=== PATIENT | male | born 1980 | race Hispanic/Latino ===

== ENCOUNTER 2017-12-15 17:07 | Inpatient (IN) | payer SELFPAY ==
[~2017-12-15 17:07] MED LIST: Dexamethasone 20 MG/5 ML VIAL ONE; Ketorolac Tromethamine 30 MG/ML VIAL ONE; Lidocaine 1% PF 5 ML VIAL ONE; Ondansetron HCl/PF 4 MG/2 ML Vial ONE; PROPOFOL 200 MG/20 ML VIAL ONE; Succinylcholine Chloride 20 MG/ML 10 ml SYRINGE FS ONE
[2017-12-15] MEDS ORDERED: Adacel (T-DAP) 0.5 ML VIAL ONE (17:13)
[2017-12-15] MEDS ORDERED: CEFAZOLIN/Water 2 GM/20 ML SYRINGE ONE (17:18)
[2017-12-15] MEDS ORDERED: Fentanyl 100 MCG/2 ML VIAL ONE ×3 (17:35→20:51)
[2017-12-15] MEDS ORDERED: Promethazine HCl 25 MG/ML VIAL IM PRN (17:52)
[2017-12-15] MEDS ORDERED: Promethazine HCl 25 MG/ML VIAL SLOW IVP PRN (17:52)
[2017-12-15] MEDS ORDERED: Ondansetron HCl/PF 4 MG/2 ML Vial IVP PRN ×2 (17:52→21:26)
[2017-12-15] MEDS ORDERED: Meperidine HCl/PF 25 MG/ML VIAL SLOW IVP PRN (17:52)
[2017-12-15 18:07] LABS: #Basophils 0.1 thou/uL (0.0-0.2); #Eosinphils 0.2 thou/uL (0.0-0.7); #Lymphocytes 1.3 thou/uL (1.20-3.40); #Monocytes 0.5 thou/uL (0.11-0.59); #Neutrophils 9.9 thou/uL (1.40-6.50); %Basophils 0.5 % (0.0-1.0); %Eosinophils 1.9 % (0.0-10.0); %Lymphocytes 10.5 % (21.0-51.0); %Monocytes 4.1 % (0.0-10.0); Hemoglobin 14.5 g/dL (14.0-18.0); Mean Corpuscular HGB CONC 35.8 g/dL (32.0-36.0); Mean Corpuscular Hemoglobin 32.4 pg (27.0-31.0); Mean Corpuscular Volume 90.5 fL (78.0-98.0); Mean Platelet Volume 7.2 fL (7.4-10.4); Platelet Count 347 thou/uL (130-400); RBC Distribution Width 11.9 % (11.5-14.5); Red Blood Cell (RBC) Count 4.48 mill/uL (4.70-6.10); White Blood Cell (WBC) Count 11.9 thou/uL (4.8-10.8)
[2017-12-15 18:15] LABS: ALT (SGPT) 18 U/L (8-55); AST (SGOT) 21 U/L (5-34); Albumin 4.4 g/dL (3.5-5.0); Alkaline Phosphatase 82 U/L (40-150); Anion Gap 10 mmol/L (10-20); BUN (Urea Nitrogen) 11 mg/dL (8.9-20.6); Bilirubin, Total 0.4 mg/dL (0.2-1.2); Calc. Creatinine Clearance 0 mL/min (70-130); Calcium 9.1 mg/dL (7.8-10.44); Carbon Dioxide 25 mmol/L (22-29); Chloride 106 mmol/L (98-107); Estimated GFR-MDRD 81; Globulin 2.8 g/dL (2.4-3.5); Glucose 145 mg/dL (70-105); Potassium 4.1 mmol/L (3.5-5.1); Protein, Total 7.2 g/dL (6.0-8.3); Sodium 137 mmol/L (136-145)
--- NOTE | 2017-12-15 18:33 | HP ---
DATE OF ADMISSION: 12/15/2017 REQUESTING PHYSICIAN: Dr. aBrry. ATTENDING PHYSICIAN: Dr. Delgado CONSULTATIONS: Orthopedics, Dr. Keys. HISTORY OF PRESENT ILLNESS: The patient is a 37-year-old man who was walking a horse when i t tripped and came back on him, hitting his right lower extremity. The patient had immediate pain an d deformity to his right lower extremity. EMS was notified. He was brought to the emergency departm ent where he was evaluated, examined and noted to have an open right distal tibia and fibular fractur e, at which time we were asked to evaluate the patient for admission and obtain orthopedic consultati on. The patient had tetanus and Ancef given in the ER. The patient denied any loss of consciousness and he had no syncopal type events prior to his fall. ALLERGIES: None. MEDICATIONS: None. PAST MEDICAL HISTORY: None. PAST SURGICAL HISTORY: Right knee ACL repair. SOCIAL HISTORY: Patient denies drug, tobacco or alcohol use. He works as a branch banker and labor. FAMILY HISTORY: Hypertension. REVIEW OF SYSTEMS: Ten point review of system is negative, unless otherwise stated. PHYSICAL EXAMINATION: VITAL SIGNS: Blood pressure 140/102, heart rate 67, respirations 18, oxygen saturation 99% on room a ir, temperature is 97.3. GENERAL: The patient is resting comfortably in bed. He is awake, alert, and oriented x3. Paula c asim scale is 15. HEENT: Head is normocephalic, atraumatic. Eyes: Extraocular motion intact. PERRLA bilaterally. E ars are atraumatic without discharge. Nose is atraumatic without discharge. Oropharynx is clear. NECK: Nontender. Trachea is midline. No JVD. CHEST: Clear to auscultation with good inspiratory and expiratory effort. HEART: Regular rate and rhythm. ABDOMEN: Soft, flat, nontender with active bowel sounds. Pelvis is stable. EXTREMITIES: The right lower extremity is immobilized in a prehospital splint, dressing was taken do wn shows approximately 4-5 cm laceration consistent with his open fracture. The extremity is warm. Capillary refill is less than 3 seconds. He has a strong dorsalis pedis pulse. The remainder of his extremities is unremarkable. They are all neurovascularly intact. BACK: Nontender and atraumatic. LABORATORY DATA: White blood cell count 11.9, hemoglobin 14.5, hematocrit 40.6, platelets 347. The remainder of his lab work is pending. Radiographs of the right lower extremity show a displaced tibi a and fibular fracture. ASSESSMENT AND PLAN: 1. Status post open right tibia and fibular fracture. 2. Pain secondary to trauma. Plan will be to admit the patient to the surgical floor. He will be taken from the emergency departm ent to the operating room to undergo washout, irrigation, debridement, and likely open reduction inte rnal fixation of his fracture. The patient will be evaluated by physical and occupational therapy, p ain control, pulmonary toilet, gastritis, and mechanical VTE prophylaxis, likely will be able to be p laced on chemical VTE prophylaxis on hospital day 2. This case was discussed with Dr. Keys who will see the patient in the emergency department and thi s case will be discussed with Dr. Delgado after this dictation.
--- NOTE | 2017-12-15 18:53 | PRG ---
DATE OF SERVICE: 12/15/2017 CHIEF COMPLAINT: Right open tib fib fracture. Patient is a level 2 trauma. Hemodynamically stable, seen in the operating room. Please see Dieter jolly's H&P for full details. The patient was not complaining of any abdominal pain. There was no los s of consciousness. No dyspnea. He is going to the OR for operative repair. Plans per orthopedics.
--- NOTE | 2017-12-15 19:23 | RAD ---
RIGHT TIBIA AND FIBULA TWO VIEWS: 12/15/2017 HISTORY: Right lower extremity deformity and pain. FINDINGS: There is a slightly oblique fracture involving the distal diaphysis of the right tibia, with a transv erse fracture also seen involving the distal right fibula. There is apex medial angulation of the fr acture fragments, with the distal fracture fragment of the tibia displaced laterally by approximately one-half shaft width and slightly displaced anteriorly as well. The distal fracture fragment of the fibula is displaced medially and posteriorly by one full shaft width. There is overlying dressing m aterial, but there is irregularity of the adjacent soft tissues, and findings may represent an open f racture of the tibia. No definite dislocation is seen. No other findings. IMPRESSION: Angulated and displaced fractures involving the distal diaphysis of both the right tibia and fibula, with findings suggesting an open fracture involving the tibia. POS: [facility]
--- NOTE | 2017-12-15 19:40 | RAD ---
LEFT TIBIA AND FIBULA TWO VIEWS: HISTORY: Kicked by a horse. FINDINGS: There is cortical irregularity in the proximal fibula on the left. This appears to be most consisten t with an old healed fracture. No acute fracture identified. IMPRESSION: No acute fracture identified. POS: [facility]
--- NOTE | 2017-12-15 20:09 | RAD ---
PORTABLE AP CHEST X-RAY: 12/15/2017 HISTORY: Fall from a horse. Open tibia/fibula fracture. FINDINGS: Endotracheal tube is noted in place with the tip overlying the T5 vertebral body, above the level of the nam. The cardiac silhouette and pulmonary vasculature are within normal limits. The lungs ar e clear. No fracture if visualized on this exam. However, there does appear to be a remote healed f racture, middle one-third, left clavicle. IMPRESSION: 1. No acute cardiopulmonary process. 2. Endotracheal tube noted in place. POS: [facility]
--- NOTE | 2017-12-15 20:59 | CON ---
DATE OF CONSULTATION: 12/15/2017 CHIEF COMPLAINT: Right leg pain. HISTORY OF PRESENT ILLNESS: Mr. Otf Ernandez is status post injury from being kicked by a horse. The patient presented by EMS for an open fracture, date of injury 12/15/2017. The patient's pain is currently 10/10. The patient is Turkish speaking. Family is at bedside. PAST MEDICAL HISTORY: None. PAST SURGICAL HISTORY: What appears to be in the right all inside ACL reconstruction with a lacerati on on the right side that has been closed and ACLS, a ligament injury is apparently year old. MEDICATIONS: None. ALLERGIES: No known drug allergies. SOCIAL HISTORY: Denies tobacco, alcohol, and drug use. The patient is the father of the [employer] her that has 3 children at bedside with his . PHYSICAL EXAMINATION: VITAL SIGNS: Blood pressure 146/70, heart rate 18. His respiratory rate, 99% on room air, 97.4 is t emperature. GENERAL: Alert and oriented male in no acute distress, resting comfortably and Turkish speaking. EXTREMITIES: The patient's right leg, he has a medial soft tissue laceration over the distal third o f the tibia with exposed bone without gross contamination. The patient has intact Achilles. The pat ient has 2+ DP and PT pulses. He is able to wiggle his toes, plantarflex and dorsiflex gently with s evere pain. The patient has no knee effusion. He is tender in the medial lateral aspect, but there was no obvious soft tissue injury of the knee. The patient has no thigh bruising to the right lower extremity. Left lower extremity Achilles intact with plantar flex and dorsiflex internal and externa l rotation; no effusion of the knee bending, and straightening his knee, picking the leg up without d iscomfort. He has got 2+ DP and PT pulses. LABORATORY AND X-RAY FINDINGS: Radiographs of his right leg from outside films of the patient's righ t tibia shows a distal one third tibia shaft fracture at the diaphyseal metaphyseal flare that appear s open with a fibular fracture at the same level, left tibia films showed no tibia fracture, but appa rent old versus new proximal fibula fracture on the left. IMPRESSION: Right grade 2 open tibia fracture without gross contamination, spiral oblique distal thi rd tibia fracture, status post crush injury from horse. ASSESSMENT AND PLAN: The patient is n.p.o. at 10:00. The patient will be taken to the OR. He has r eceived tetanus and Ancef. The patient received an intramedullary nailing of his right tibia with I&D and closure as needed. I discussed with the family with a lang interpreter the history, and phy sical exam as well as the risks and benefits of the surgery to include pain, scar, bleeding, infectio n, injury to structures, decreased range of motion, strength, nonunion, malunion, need for further gillis rgeries. I discussed that given his open fractures and increased risk of nonunion, the patient and f juany understand these risks and benefits and elected to proceed. Timeout was performed and they augusto l proceed to the OR once the OR is ready to .
--- NOTE | 2017-12-15 21:06 | RAD ---
INTRAOPERATIVE FLUOROSCOPIC IMAGES OF THE RIGHT TIBIA AND FIBULA: 12/15/2017 HISTORY: Intramedullary nail, right tibia. COMPARISON: 12/15/2017 at 1717 hours. FINDINGS: A retrograde intramedullary jordin with proximal and distal interlocking screws are now seen transfixing the previously noted fracture of the distal tibial fracture. There is improvement in alignment of t he fracture fragments. There has also been interval improvement in alignment of the fracture involvi ng the diaphysis of the fibula. No hardware complication is seen on this exam. IMPRESSION: Internal fixation, fracture, distal right tibia, with improvement in alignment of the fractures invol ving both the distal tibia and fibula, right lower extremity. POS: [facility]
[2017-12-15] MEDS ORDERED: hydrALAZINE 20 MG/ML VIAL SLOW IVP PRN (21:26)
[2017-12-15] MEDS ORDERED: Dextrose 5% in Water 1,000 ML IV PRN (21:26)
[2017-12-15] MEDS ORDERED: Dextrose 50% Abboject 50 ML SYRINGE SLOW IVP PRN (21:26)
[2017-12-15] MEDS ORDERED: Cyclobenzaprine 10 MG TAB PO PRN (21:26)
[2017-12-15] MEDS ORDERED: Ondansetron ODT 4 MG TAB PO PRN (21:26)
[2017-12-15] MEDS ORDERED: Sodium Chloride 0.9% 1,000 ML IV SCH (21:26)
[2017-12-15] MEDS ORDERED: traMADol HCl 50 MG TAB PO PRN ×2 (21:26)
[2017-12-15] MEDS ORDERED: Morphine 4 MG/ML VIAL SLOW IVP PRN (21:26)
[2017-12-15] MEDS ORDERED: Famotidine 20 MG TAB PO SCH (21:45)
[2017-12-15] MEDS ORDERED: Acetaminophen 1,000 MG in Premix Bag 1 BAG IVPB SCH (21:45)
[2017-12-15] MEDS ORDERED: Ibuprofen 600 MG TAB PO SCH (22:00)
[2017-12-15 23:58] VITALS: BMI 21.3
[2017-12-16] MEDS: Ibuprofen 600 MG TAB PO SCH ×2 (00:18→08:48)
[2017-12-16] MEDS: CEFAZOLIN/Water 2 G/20 ML 2 GM in Syringe 0 ML SLOW IVP SCH ×2 (00:43→09:54)
[2017-12-16] MEDS ORDERED: Acetaminophen 500 MG TAB PO SCH (04:00)
[2017-12-16] MEDS: Acetaminophen 500 MG TAB PO SCH ×2 (06:09→13:58)
[2017-12-16] MEDS ORDERED: Famotidine 20 MG TAB PO SCH (09:00)
[2017-12-16 09:05] LABS: #Lymphocytes 1.1 thou/uL (1.20-3.40); #Monocytes 0.4 thou/uL (0.11-0.59); #Neutrophils 10.2 thou/uL (1.40-6.50); %Basophils 0.1 % (0.0-1.0); %Eosinophils 0.1 % (0.0-10.0); %Lymphocytes 9.5 % (21.0-51.0); %Monocytes 3.4 % (0.0-10.0); Mean Corpuscular HGB CONC 34.4 g/dL (32.0-36.0); Mean Corpuscular Hemoglobin 31.3 pg (27.0-31.0); Mean Corpuscular Volume 90.9 fL (78.0-98.0); Platelet Count 305 thou/uL (130-400); Red Blood Cell (RBC) Count 3.84 mill/uL (4.70-6.10); White Blood Cell (WBC) Count 11.7 thou/uL (4.8-10.8)
[2017-12-16 09:30] LABS: Anion Gap 13 mmol/L (10-20); BUN (Urea Nitrogen) 7 mg/dL (8.9-20.6); Calc. Creatinine Clearance 112 mL/min (70-130); Calcium 8.6 mg/dL (7.8-10.44); Carbon Dioxide 21 mmol/L (22-29); Chloride 108 mmol/L (98-107); Estimated GFR-MDRD Greater than 90; Glucose 137 mg/dL (70-105); Phosphorus 3.2 mg/dL (2.3-4.7); Potassium 4.1 mmol/L (3.5-5.1); Sodium 138 mmol/L (136-145)
[2017-12-16 12:03] VITALS: TEMP 97.4
--- NOTE | 2017-12-16 12:43 | DIS ---
ADMISSION DIAGNOSES: 1. Status post open right tibia and fibula fracture. 2. Pain secondary to trauma. CONSULTATIONS: Orthopedics, Dr. Keys. PROCEDURES: 1. Open reduction internal fixation of open right tibia and fibular fracture, irrigation and debride ment of open fracture. 2. IM nail of right tibia fracture. SUMMARY: This patient is a 37-year-old man, who was walking a horse when the horse stumbled and hit his right leg. He had immediate pain and discomfort deformity. EMS brought him to the [facility], he was noted to have open right midshaft tibia and fibular fracture. He was taken to the operating room and underwent his above procedure. He tolerated that well this morning. He wa s tolerating a diet. His pain was controlled. He ambulated with physical therapy on crutches. He w as comfortable to go home and his family was agreeable to this and he will be discharged home. [facility] Keys in 10 days. He was discharged home with pain medicine of Ultr am 50 mg 1-2 tabs q.6 hours p.r.n. for pain #60 and also was instructed to stay on 81 mg of aspirin t wice a day until seen by Dr. Keys.
[2017-12-16 15:12] VITALS: BP 114/80
--- NOTE | 2017-12-16 15:24 | OP ---
PREOPERATIVE DIAGNOSIS: Open grade II tibia shaft fracture without gross contamination. POSTOPERATIVE DIAGNOSIS: Open grade II tibia shaft fracture without gross contamination. PROCEDURES PERFORMED: 1. Right intramedullary nailing, right tibia fracture. 2. I&D open fracture. 3. Closure of 5 cm laceration. 4. Application of short leg splint. STAFF: Jules Keys M.D. CANE LOADER: Robert Cope PA-C. ANESTHESIA: Yonis Rosario M.D., the patient received general endotracheal intubation. ESTIMATED BLOOD LOSS: 200 mL TOURNIQUET TIME: None. IMPLANTS: Were a [employer] 10 x 30 mm titanium cannulated nail and three 5-0 locking screws and a titanium end cap 10 mm. ANTIBIOTICS: Ancef 2 grams antibiotics tetanus booster. COMPLICATIONS: None. HISTORY OF PRESENT ILLNESS: Mr. Vanessa is a 37-year-old male, status post injury by a horse, had his pants on and was stomped by a horse and sustained a tibia fracture. The patient was brought in by EMS. The patient has soft compartments. The patient is Chinese speaking. I spoke with his and the patient through the pantograph machine operator, we discussed and had a right tibia shaft fracture. I discussed the risks and benefits of an intramedullary nailing of right tibia with I&D and closure to include pain, scar, bleeding, infection, damage to vital structures, decreased range of motion or strength, nonunion, malunion, need for further surgeries, loss of life or limb. The patient understood the risks and benefits of procedure and elected to proceed. OPERATIVE TECHNIQUE: Timeout was performed, the patient's right lower extremity as the operative site based on sight, consent, and markings. After time-out was performed, the right lower extremity was prepped and draped in sterile fashion. We extended incision 1 cm in both directions, opened up both bones, created a bone hematoma, and there was no gross contamination greater in the muscle plane as well as into the skin and looked bad. After debridement was completed, we washed the wound with about 1500 mL of fluid. We then clamped and reduced our fracture, moved to the knee. We made a midline incision , split the tendon came down to our starting point to try to stay further away from the patient's ACL. We started placing single guidepin and placed a little more posterior and medial than I had before. I liked the pin placement and used an opening reamer. We then used our finger and passed our jordin down the middle. We reclamped to get the reduction, passed a guidepin in center-center on AP and lateral radiographs. At completion of this, we started reaming. We sequentially reamed up to 11 mm and passed a 10 mm x 30 mm nail, kept the reduction in place, placed a screw in a dynamization position, so we could allow for some closure of the gap distally. We then put our endplate in place, removed the outrigger distally holding keep our reduction with a lions jaw clamp. We made 2 stab incisions, drilled bicortically, and placed two 5-0 screws distally to control rotation to help with stability. The patient had pretty much subtle varus angulation, subtle overlap and overall good alignment on lateral and AP radiographs, was completed with the reduction. We then washed the wounds. We closed the 5 cm traumatic laceration with traumatic sutures. We closed the tendon with 0, 2-0, and froilan as well as stab incisions for nail sites. We washed and cleaned the wounds. We placed a posterior splint. The patient will be admitted to Trauma to receive 24 hours of antibiotics. The patient will remain nonweightbearing until hefollows up in clinic and be transitioned to a boot. ART
[2017-12-16] MEDS ORDERED: Aspirin 81 mg Enteric Coated Tablet PO SCH (21:00)
== END 2017-12-16 14:39 | disposition home or self-care (01) | DRG 494 ==
LOC: ERS 17:07 → EDBD 17:07 → ERS 18:14 → SDC/OP 18:51 → SURG B 20:39
PROVIDERS: ADMIT Surgery; ATTEND Surgery
PROC: 0QSG06Z Reposition Right Tibia with Intramedullary Internal Fixation Device, Open Approach (ICD-10-PCS; principal; 2017-12-15)
PROC: 3E0234Z Introduction of Serum, Toxoid and Vaccine into Muscle, Percutaneous Approach (ICD-10-PCS; 2017-12-15)
DX: S82.201B Unspecified fracture of shaft of right tibia, initial encounter for open fracture type I or II (principal); S82.401B Unspecified fracture of shaft of right fibula, initial encounter for open fracture type I or II; G89.11 Acute pain due to trauma; Z23 Encounter for immunization; W55.12XA Struck by horse, initial encounter
CPT/HCPCS: 36415; 71045; 76001; 80053; 83735; 84100; 85025; 86850; 86900; 86901; 90471; 90715; 93005; 96374; C1713; C1769; G0390; G8978-GP-CK; G8979-GP-CK; G8980-GP-CK; G8987-GO-CI; G8988-GO-CI; G8989-GO-CI; J0131; J1100; J1885; J2001; J2405; J2704; J3010